=== PATIENT | female | born 1955 | race Caucasian/White ===

== ENCOUNTER 2019-05-04 12:10 | Emergency (ER) | payer MEDICAID, MEDICARE ==
[~2019-05-04] VITALS: Ht 162.6 cm; Wt 177.5 kg
[2019-05-04] MEDS ORDERED: MORPHINE 4 MG/ML 1ML VIAL/SYRINGE (J2270) IV ONE (15:00)
[2019-05-04] MEDS ORDERED: ONDANSETRON 4MG/2ML VIAL (J2405) IV ONE (15:00)
[2019-05-04] MEDS ORDERED: diphenhydrAMINE INJ 50MG/ML VIAL (J1200) IV ONE (15:00)
[2019-05-04 15:25] LABS: BASO % 0.3 % (0.0-1.0); EOS # 0.1 10^3/uL (0.0-0.5); EOS % 1.9 % (0.0-3.0); HEMATOCRIT 45.8 % (36.0-47.0); HEMOGLOBIN 14.4 g/dl (12.0-15.5); LYMPH # 1.4 10^3/uL (1.5-5.0); LYMPH % 23.6 % (24.0-44.0); MEAN CORPUSCULAR HGB CONC 31.4 g/dl (32.0-36.5); MEAN CORPUSCULAR VOLUME 92.2 fl (80.0-96.0); MONO # 0.5 10^3/uL (0.0-0.8); MONO % 8.5 % (0.0-5.0); NEUTROPHILS # 3.8 10^3/uL (1.5-8.5); NEUTROPHILS % 65.2 % (36.0-66.0); PLATELET COUNT, AUTOMATED 187 10^3/uL (150-450); RED BLOOD COUNT 4.97 10^6/uL (4.00-5.40); WHITE BLOOD COUNT 5.8 10^3/uL (4.0-10.0)
[2019-05-04] MEDS ORDERED: ISOVUE-370 76% 100ML VIAL (Q9967) As Ordered ONE (15:34)
[2019-05-04 15:35] LABS: INR 1.01
[2019-05-04 15:36] LABS: PARTIAL THROMBOPLASTIN TIME 26.4 SECONDS (25.0-38.4)
--- NOTE | 2019-05-04 15:43 | REP ---
LEFT HIP, TWO VIEWS: There is no evidence of an acute fracture, dislocation or intrinsic bone disease. IMPRESSION: No fracture or dislocation. Electronically Signed by Ziggy Mccracken MD 05/04/2019 08:22 P
--- NOTE | 2019-05-04 15:45 | REP ---
CHEST, TWO VIEWS: Two views of the chest are performed without priors for comparison. There is no acute infiltrate or pulmonary edema. Heart is upper limits of normal in size. Multiple sternal wires are present as well as a prosthetic heart valve. There are mild degenerative changes of the spine. There appears to be deformity of the right humeral head. IMPRESSION: No acute pulmonary disease. Electronically Signed by Ziggy Mccracken MD 05/04/2019 08:22 P
[2019-05-04 15:49] LABS: ALBUMIN 3.9 GM/DL (3.2-5.2); ALT/SGPT 19 U/L (12-78); BILIRUBIN,DIRECT 0.1 MG/DL (0.0-0.2); BILIRUBIN,TOTAL 0.3 MG/DL (0.2-1.0); C REACTIVE PROTEIN QUANTITATIV 0.99 MG/DL (0.00-0.30); CK-MB VALUE MASS 1.9 NG/ML (<3.6); CPK CREATINE PHOSPHOKINASE 90 U/L (26-192); MB/CK RELATIVE INDEX 2.11 (< OR =4); NT-PRO BNP 242 PG/ML (<125); TOTAL PROTEIN 7.5 GM/DL (6.4-8.2); TROPONIN I < 0.02 NG/ML (< 0.10)
--- NOTE | 2019-05-04 15:49 | REP ---
Duplex extremity venous ultrasound: Left lower extremity. History: Rule out DVT. Findings: The deep veins are anechoic and fully compressible from the groin to the popliteal fossa in the left lower extremity. Color flow imaging is homogeneous. Spectral Doppler interrogation demonstrates intact respiratory variation in flow and normal manual augmentation of flow. There is no evidence of deep vein thrombosis. Impression: Negative left lower extremity duplex venous ultrasound. No evidence of deep vein thrombosis. Electronically Signed by Jimmy Mathur MD 05/04/2019 03:41 P
[2019-05-04 15:50] LABS: ERYTHROCYTE SEDIMENTATION RATE 3 mm/hr (0-30)
--- NOTE | 2019-05-04 17:08 | REP ---
CT of the chest with IV contrast, CT pulmonary artery angiography: Comparison is 10/06/2018. There are no emboli in the pulmonary trunk or central pulmonary arteries. There are no emboli in the pulmonary lobe or segment branches. There are no infiltrates or pleural effusions. There are no masses or nodules. The thoracic aorta is unremarkable. Cardiac size is upper normal. There is no pericardial effusion. There is no mediastinal, hilar or axillary adenopathy. The visualized upper abdominal contents are unremarkable. There are sternotomy wires. The there is a cardiac valve replacement. Impression: There are no pulmonary emboli. There are sternotomy wires and cardiac valve replacement. Cardiac size is upper normal. Lung muller are clear. Electronically Signed by Ziggy Beatty MD 05/04/2019 05:00 P
[2019-05-04] MEDS ORDERED: MACR100C43 PO (19:10)
[2019-05-04] MEDS ORDERED: PYRI1TAB5 PO (19:11)
[2019-05-04 19:34] VITALS: BP 133/85
--- NOTE | 2019-05-05 08:01 | ECGEPIP ---
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
== END 2019-05-04 19:54 | disposition home or self-care (01) ==
LOC: M ED 12:10
DX: N39.0 Urinary tract infection, site not specified (principal); M79.605 Pain in left leg; R06.02 Shortness of breath; I45.89 Other specified conduction disorders; Z86.711 Personal history of pulmonary embolism; Z86.718 Personal history of other venous thrombosis and embolism; I48.91 Unspecified atrial fibrillation; I10 Essential (primary) hypertension; Z87.442 Personal history of urinary calculi; Z86.79 Personal history of other diseases of the circulatory system; Z86.14 Personal history of Methicillin resistant Staphylococcus aureus infection; Z86.19 Personal history of other infectious and parasitic diseases; Z95.2 Presence of prosthetic heart valve; Z83.2 Family history of diseases of the blood and blood-forming organs and certain disorders involving the immune mechanism; Z88.0 Allergy status to penicillin; Z88.1 Allergy status to other antibiotic agents; Z88.5 Allergy status to narcotic agent; Z88.8 Allergy status to other drugs, medicaments and biological substances
CPT/HCPCS: 71046; 71275; 73502; 80047; 80076; 81001; 82550; 82553; 83880; 84484; 85025; 85610; 85652; 85730; 86140; 87086; 93005; 93971; 96374; 96375; 99284; J1200; J2270; J2405; Q9967